=== PATIENT | male | born 1965 | race Caucasian/White ===

== ENCOUNTER 2017-02-02 06:21 | Day surgery (SDC) | payer OTHER ==
[2017-02-02] MEDS ORDERED: LIDOCAINE 1% 2 ML INJ ID PRN (06:41)
[2017-02-02] MEDS ORDERED: LR 1,000 ML IV SCH (07:00)
[2017-02-02] MEDS ORDERED: fentaNYL 100 MCG/2 ML INJ IVP PRN ×2 (07:17)
[2017-02-02] MEDS ORDERED: ACETAMINOPHEN 500 MG TAB PO PRN (07:17)
[2017-02-02] MEDS ORDERED: DEXAMETHASONE 4 MG/ML VIAL IVP PRN (07:17)
[2017-02-02] MEDS ORDERED: NALOXONE HCL 0.4 MG/ML INJ IVP PRN (07:17)
--- NOTE | 2017-02-02 07:18 | PDANEPAE ---
ANE History of Present Illness Colonoscopy ANE Past Medical History - Cardiovascular History Hx Hypertension: No Hx Arrhythmias: No Hx Chest Pain: No Hx Coronary Artery / Peripheral Vascular Disease: No Hx CHF / Valvular Disease: No Hx Palpitations: No - Pulmonary History Hx COPD: No Hx Asthma/Reactive Airway Disease: No Hx Recent Upper Respiratory Infection: No Hx Oxygen in Use at Home: No Hx Sleep Apnea: No Sleep Apnea Screening Result - Last Documented: Negative - Neurologic History Hx Cerebrovascular Accident: No Hx Seizures: No Hx Dementia: No - Endocrine History Hx Diabetes: No - Renal History Hx Renal Disorders: No - Liver History Hx Hepatic Disorders: No - Neurological & Psychiatric Hx Hx Neurological and Psychiatric Disorders: No - Cancer History Hx Cancer: No - Congenital Disorder History Hx Congenital Disorders: No - GI History Hx Gastrointestinal Disorders: No - Chronic Pain History Chronic Pain: No - Surgical History Prior Surgeries: colonoscopy ANE Review of Systems Review of systems is: negative - Exercise capacity METS (RN): 4 METS ANE Patient History - Allergies Allergies/Adverse Reactions: No Known Allergies Allergy (Unverified 12/30/16 10:24) - Home Medications Home Medications: Ibuprofen 12/30/16 [Last Taken Unknown] Lipitor 12/30/16 [Last Taken Unknown] - NPO status NPO Since - Liquids (Date): 02/01/17 NPO Since - Liquids (Time): 19:00 NPO Since - Solids (Date): 02/01/17 NPO Since - Solids (Time): 09:00 - Smoking Hx Smoking Status: Never smoked - Family Anes Hx Family Hx Anesthesia Complications: none ANE Labs/Vital Signs - Vital Signs Blood Pressure: 142/91 Heart Rate: 64 Respiratory Rate: 14 O2 Sat (%): 93 Height: 180.34 cm Weight: 77.111 kg ANE Physical Exam - Airway Neck exam: FROM Mallampati Score: Class 2 Mouth exam: normal dental/mouth exam - Pulmonary Pulmonary: clear to auscultation - Cardiovascular Cardiovascular: regular rate and rhythym - ASA Status ASA Status: II ANE Anesthesia Plan Anesthesia Plan: general endotracheal anesthesia
--- NOTE | 2017-02-02 07:23 | PDGENHP ---
History & Physical Chief Complaint: colon polyp History of Present Illness: piecemeal resection cecal polyp Pertinent Past, Social, Family History: reviewed Relevant Physical Exam: RRR. clear breathing Cardiorespiratory Assessment: RRR, ctab
[2017-02-02] MEDS ORDERED: PROPOFOL/EMULSION 500 MG/50 ML BOTTLE IV ONE (08:06)
[2017-02-02] MEDS ORDERED: LIDOCAINE 2% 5 ML SDV ONE (08:07)
--- NOTE | 2017-02-02 08:50 | POSTANESTH ---
Post Anesthetic Evaluation Cardiovascular Status: Normal, Stable Respiratory Status: Normal, Stable Level of Consciousness/Mental Status: Can Participate in Eval, Alert and Oriented Pain Control: Adequate, Prn Tx Ordered Nausea/Vomiting Control: Adequate, Prn Tx Ordered Complications Possibly Related to Anesthesia: None Noted
--- NOTE | 2017-02-02 09:13 | GPN ---
[f rep st] PROCEDURE NOTE DATE OF PROCEDURE: 02/02/2017 PROCEDURE: Colonoscopy. INDICATION: History of piecemeal resection of cecal polyp. CONSENT: Informed consent was obtained from the patient after an explanation of risks, benefits, and alternatives to the procedure. MEDICATIONS: Propofol per Anesthesia. DESCRIPTION OF EXAM: After adequate sedation was achieved, the colonoscope was advanced under direct vision through the anal orifice and as far as the cecum and terminal ilium. Views were good. The patient's tolerance of the procedure was good. The prep was good. ESTIMATED BLOOD LOSS: None. COMPLICATIONS: None. FINDINGS: 1. Cecal polypectomy site was identified and carefully examined under both white light and narrow band imaging. No polyp recurrence was found. 2. A few small diverticula were seen in the sigmoid colon. 3. Ilium was normal as was the remainder of the examined colon. IMPRESSION: No polyp recurrence and no additional polyps were seen. RECOMMENDATIONS: 1. Repeat colonoscopy in 3 years. 2. Regular diet and resume previous medications. 3. Thank you for allowing me to participate in the care of this patient. /[id number]/MODL MTDD
[2017-02-02 09:28] VITALS: BP 132/68; RESP 16; TEMP 97.9
[2017-02-02 09:30] VITALS: PULSE 66; O2SAT 98
== END 2017-02-02 09:20 | disposition home or self-care (01) ==
LOC: FSGY 06:21
PROVIDERS: ATTEND Internal Medicine
PROC: 0DBH8ZX Excision of Cecum, Via Natural or Artificial Opening Endoscopic, Diagnostic (ICD-10-PCS; principal; 2017-02-02 08:00)
DX: D12.0 Benign neoplasm of cecum (principal)
CPT/HCPCS: J2704